=== PATIENT | male | born 1970 | race Asian ===

== ENCOUNTER 2019-08-17 01:36 | Emergency (ER) | payer BC ==
[~2019-08-17] VITALS: Ht 188 cm; Wt 103.0 kg
[2019-08-17 02:05] VITALS: BP_SYST 167
--- NOTE | 2019-08-17 03:10 | NUR ---
Patient to ER bed 1 for evaluation. Side rails up.
--- NOTE | 2019-08-17 03:22 | NUR ---
ER Dr. Osuna at bedside examining patient.
--- NOTE | 2019-08-17 03:25 | NUR ---
Pt anxious and restless C/O tingling skin x 3 weeks and hypertension since today. Pt denies any C/P, SOB, N/V, or any other symptoms at this time. Will continue to monitor.
--- NOTE | 2019-08-17 03:42 | NUR ---
Radiology at bedside for xray
--- NOTE | 2019-08-17 04:10 | NUR ---
# 18 gauge angiocath placed to LT AC. Use of asceptic technique. Opsite placed over site. Blood return noted. Blood for lab drawn from site. Flushed with 10 cc of normal saline. No evidence of infiltration noted. Patient tolerated well.
[2019-08-17 04:33] LABS: BASOPHILS % (AUTO) 0.4 % (0.0-2.0); EOSINOPHILS % (AUTO) 0.6 % (0.0-4.0); HEMATOCRIT 48.1 % (36-54); HEMOGLOBIN 16.5 g/dL (14.0-18.0); LYMPHOCYTES # (AUTO) 1.3 K/uL (1.0-5.5); LYMPHOCYTES % (AUTO) 18.7 % (20.5-51.5); MEAN CORPUSCULAR HEMOGLOBIN 31 pg (27-31); MEAN CORPUSCULAR HGB CONC 34 % (32-36); MEAN CORPUSCULAR VOLUME 90 fL (79.0-98.0); MONOCYTES # (AUTO) 0.4 K/uL (0.0-1.0); MONOCYTES % (AUTO) 6.2 % (1.7-9.3); NEUTROPHILS % (AUTO) 74.1 % (40.0-70.0); PLATELET COUNT (AUTO) 157 K/uL (130-430); RED BLOOD CELL COUNT(AUTO) 5.32 MIL/uL (4.2-6.2); WHITE BLOOD COUNT (AUTO) 6.8 K/uL (4.8-10.8)
[2019-08-17 04:49] LABS: CALCIUM 8.7 mg/dL (8.4-11.0); CREATININE 0.98 mg/dL (0.55-1.30); POTASSIUM 4.3 mmol/L (3.5-5.1)
[2019-08-17 04:54] LABS: ALBUMIN 3.9 g/dL (3.4-4.8); TOTAL BILIRUBIN 0.4 mg/dL (0.0-1.0)
[2019-08-17] MEDS ORDERED: LABETALOL 100 MG/ 20ML VIAL IVP ONE (05:15)
[2019-08-17 05:46] VITALS: BP_SYST 143
--- NOTE | 2019-08-17 05:47 | NUR ---
Patient given written and verbal discharge instructions and verbalizes understanding. ER MD discussed with patient the results and treatment provided. Patient in stable condition. ID arm band removed. IV catheter removed intact and dressing applied, no active bleeding. Patient educated on pain management and to follow up with PMD. Pain Scale 0. Opportunity for questions provided and answered. Medication side effect fact sheet provided.
== END 2019-08-17 05:46 | disposition home or self-care (01) ==
LOC: SED 01:36
DX: I10 Essential (primary) hypertension (principal)
CPT/HCPCS: 36415; 71045; 80053; 82550; 84484; 85025; 93005; 96374; 99284; J3490

== ENCOUNTER 2023-01-06 23:07 | Emergency (ER) | payer BC ==
[~2023-01-06] VITALS: Ht 188 cm; Wt 114.3 kg
[2023-01-06 23:10] VITALS: BP_SYST 154
--- NOTE | 2023-01-06 23:10 | NUR ---
Patient triaged and placed in ER bed 7. Bed placed in lowest position and side rails up. Report given to Julian ERVIN for continuity of care. Instructed patient to notify ED staff for any changes in condition or worsening of symptoms while waiting to be seen by a provider. Patient verbalized understanding.
--- NOTE | 2023-01-06 23:27 | NUR ---
Dr. Castellano at bedside examining the patient.
[2023-01-06] MEDS ORDERED: MUPI15CR12 TP (23:30)
--- NOTE | 2023-01-06 23:30 | NUR ---
PT PRESENTS TO ED WITH C/O FACIAL RASH ON BOTTOM LEFT AND TO THE LEFT OF FACE. VSS, NAD, EVEN UNLABORED RR. BED LOWEST POSITION SAFETY RAILS UP
--- NOTE | 2023-01-06 23:41 | NUR ---
Patient given written and verbal discharge instructions and verbalizes understanding. ER MD discussed with patient the results and treatment provided. Patient in stable condition. ID arm band removed. Rx of MUPIROCIN given. Patient educated on pain management and to follow up with PMD. Opportunity for questions provided and answered. Medication side effect fact sheet provided.
[2023-01-06 23:42] VITALS: BP_SYST 154
== END 2023-01-06 23:35 | disposition home or self-care (01) ==
LOC: SED 23:07
DX: L08.9 Local infection of the skin and subcutaneous tissue, unspecified (principal); L01.00 Impetigo, unspecified; R21 Rash and other nonspecific skin eruption; R50.9 Fever, unspecified; Z79.899 Other long term (current) drug therapy
CPT/HCPCS: 99283